=== PATIENT | female | born 1975 | race Caucasian/White ===

== ENCOUNTER 2024-04-19 08:00 | Outpatient (CLI) | payer MEDICARE, OTHER ==
--- NOTE | 2024-04-19 22:15 | XRAY Report ---
PROCEDURE: Wrist 3+V LT INDICATIONS: PAIN IN LEFT WRIST TECHNIQUE: 3 views of the wrist were acquired. COMPARISON: Forearm radiograph dated 01/03/2011. FINDINGS: Bones: No fractures or dislocations. No suspicious bony lesions. Soft tissues: No suspicious soft tissue calcifications or masses. IMPRESSION: No acute bony abnormality. Reviewed by: Jaspreet Tobar MD on 04/19/2024 10:13 PM PDT Approved by: Jaspreet Tobar MD on 04/19/2024 10:13 PM PDT Station ID: [id number]
--- NOTE | 2024-04-19 22:15 | XRAY Report ---
PROCEDURE: Hand 3+V LT INDICATIONS: PAIN IN LEFT HAND TECHNIQUE: 3 views of the hand(s) acquired. COMPARISON: Forearm radiograph dated 01/03/2011. FINDINGS: Bones: No fractures or dislocations. Joint spaces are fairly well preserved. No gross bony erosive c hanges. No suspicious bony lesions. Soft tissues: No suspicious soft tissue calcifications or masses. IMPRESSION: No acute left hand fracture or dislocation. No gross bony erosive changes. Reviewed by: Jaspreet Tobar MD on 04/19/2024 10:14 PM PDT Approved by: Jaspreet Tobar MD on 04/19/2024 10:14 PM PDT Station ID: [id number]
== END 2024-04-19 23:59 | disposition home or self-care (01) ==
LOC: DI.S 08:00
PROVIDERS: ATTEND Registered Nurse
DX: M25.532 Pain in left wrist (principal); M25.542 Pain in joints of left hand; R22.32 Localized swelling, mass and lump, left upper limb